=== PATIENT | female | born 1975 | race Caucasian/White ===

== ENCOUNTER 2021-06-19 21:47 | Emergency (ER) | payer SELFPAY ==
[~2021-06-19] VITALS: Ht 165.1 cm; Wt 43.0 kg
[2021-06-19] MEDS ORDERED: PHENYTOIN SODIUM 1,000 MG in SODIUM CHLORIDE 0.9% 100 ML IV ONE (22:15)
[2021-06-19 23:00] LABS: BASOPHILS % 0.8 % (0.0-2.0); EOSINOPHILS % 1.3 % (0.0-5.0); HEMATOCRIT. 37.6 % (36.0-48.0); HEMOGLOBIN. 12.8 g/dL (12.0-16.0); LYMPHOCYTES % 45.1 % (20.0-50.0); MEAN CORPUSCULAR HEMOGLOBIN 33.5 pg (28.0-32.0); MEAN CORPUSCULAR VOLUME 98.5 fL (81.0-99.0); MEAN PLATELET VOLUME 8.5 fl (7.4-10.4); NEUTROPHILS % 44.8 % (40.0-76.0); PLATELET 155 x1000/uL (130-400); RED BLOOD CELL COUNT 3.82 mill/uL (4.2-5.4)
[2021-06-19] MEDS ORDERED: PHENYTOIN SODIUM EXTENDED 100MG CAPSULE PO ONE (23:00)
[2021-06-19 23:05] LABS: CHLORIDE 114 mEq/L (98-107)
[2021-06-19 23:09] LABS: ETHANOL BLOOD < 10 mg/dL
[2021-06-19 23:16] LABS: HCG SCREEN NEGATIVE
[2021-06-20 03:13] VITALS: BP 99/56
== END 2021-06-20 03:38 | disposition home or self-care (01) ==
LOC: ER 21:47
DX: T42.4X2A Poisoning by benzodiazepines, intentional self-harm, initial encounter (principal); G47.00 Insomnia, unspecified; F43.0 Acute stress reaction; R94.31 Abnormal electrocardiogram [ECG] [EKG]; F13.10 Sedative, hypnotic or anxiolytic abuse, uncomplicated; G40.909 Epilepsy, unspecified, not intractable, without status epilepticus; Y92.89 Other specified places as the place of occurrence of the external cause
CPT/HCPCS: 36415; 80053; 80307; 80320; 80329; 84703; 85025; 93005; 99284; J1165; J7050; G0480